=== PATIENT | female | born 1995 | race Caucasian/White ===

== ENCOUNTER 2017-01-18 11:25 | Emergency (ER) | payer OTHER ==
[~2017-01-18] VITALS: Ht 165.1 cm; Wt 59.9 kg
--- NOTE | 2017-01-18 12:13 | PHYS DOC ---
Past History Past Medical History: No Pertinent History Past Surgical History: No Surgical History Smoking: Non-smoker Alcohol Use: None Drug Use: None Adult General Chief Complaint Chief Complaint: [facility] Patient is a pleasant 21-year-old female who complains of suprapubic crampy abdominal pain that began 4 days ago with slight rectal bleeding that is nonpainful bright red blood per rectum when she wipes her rectum as well as its now being produced on the outside since his stool. The pain in her abdomen as crampy it does not radiate to her back or upper abdomen. She denies any prior history of the same. Pain is described as dull at this time mild without location in the right lower quadrant. Patient denies as she is on Mirena. Patient also says she denies any raw food consumption, sick contacts, travel outside the country, handling of poultry or reptiles, recent consumption of antibiotics, or dizziness. Patient says she has no rectal pain with his bowel movements, she has no rectal discharge other than loose diarrheal stool. Patient denies any fevers or chills with her symptoms. Patient denies any gum bleeding or heavy menstrual periods or easy bruising or bleeding. Review of Systems Review of Systems Constitutional: Denies fever or chills [] Eyes: Denies change in visual acuity, redness, or eye pain [] HENT: Denies nasal congestion or sore throat [] Respiratory: Denies cough or shortness of breath [] Cardiovascular: No additional information not addressed in [facility] [] GI: He does have crampy lower abdominal pain in the right lower suprapubic and left lower quadrants. With nausea no vomiting she has blood in her stools and diarrhea. : Denies dysuria or hematuria [] Musculoskeletal: Denies back pain or joint pain [] Integument: Denies rash or skin lesions [] Neurologic: Denies headache, focal weakness or sensory changes [] Endocrine: Denies polyuria or polydipsia [] Allergies Allergies Allergies Coded Allergies Type Severity Reaction Last Updated Verified No Known Drug Allergies 01/18/17 No Physical Exam Physical Exam Vital signs recorded on the chart within normal limits. Constitutional: Well developed, well nourished, no acute distress, non-toxic appearance. [] HENT: Normocephalic, atraumatic, bilateral external ears normal, oropharynx moist, no oral exudates, nose normal. [] Eyes: PERRLA, EOMI, conjunctiva normal, no discharge. [] Neck: Normal range of motion, no tenderness, supple, no stridor. [] Cardiovascular:Heart rate regular rhythm, no murmur [] Lungs & Thorax: Bilateral breath sounds clear to auscultation [] Abdomen: Bowel sounds normal, soft, she has slight tenderness to palpation in the left lower quadrant and suprapubic region. There is no masses organomegaly or rebound. Patient rectal exam demonstrated a small nonthrombosed hemorrhoid at the 6 clock position. There is no evidence of rectal fissure, no obvious blood in the stool. Skin: Warm, dry, no erythema, no rash. [] Back: No tenderness, no CVA tenderness. [] Extremities: No tenderness, no cyanosis, no clubbing, ROM intact, no edema. [] Neurologic: Alert and oriented X 3, normal motor function, normal sensory function, no focal deficits noted. [] Psychologic: Affect normal, judgement normal, mood normal. [] Current Patient Data Lab Results Laboratory Tests Test 01/18/17 12:00 01/18/17 12:20 01/18/17 12:45 01/18/17 13:01 Stool Occult Blood Positive (NEG) White Blood Count 6.6 x10^3/uL (4.0-11.0) Red Blood Count 4.90 x10^6/uL (3.50-5.40) Hemoglobin 15.1 g/dL (12.0-15.5) Hematocrit 42.9 % (36.0-47.0) Mean Corpuscular Volume 88 fL (79-100) Mean Corpuscular Hemoglobin 31 pg (25-35) Mean Corpuscular Hemoglobin Concent 35 g/dL (31-37) Red Cell Distribution Width 13.5 % (11.5-14.5) Platelet Count 202 x10^3/uL (140-400) Neutrophils (%) (Auto) 67 % (31-73) Lymphocytes (%) (Auto) 25 % (24-48) Monocytes (%) (Auto) 7 % (0-9) Eosinophils (%) (Auto) 1 % (0-3) Basophils (%) (Auto) 0 % (0-3) Neutrophils # (Auto) 4.4 x10^3uL (1.8-7.7) Lymphocytes # (Auto) 1.6 x10^3/uL (1.0-4.8) Monocytes # (Auto) 0.5 x10^3/uL (0.0-1.1) Eosinophils # (Auto) 0.1 x10^3/uL (0.0-0.7) Basophils # (Auto) 0.0 x10^3/uL (0.0-0.2) Sodium Level 142 mmol/L (136-145) Potassium Level 3.4 mmol/L (3.5-5.1) L Chloride Level 107 mmol/L (98-107) Carbon Dioxide Level 27 mmol/L (21-32) Anion Gap 8 (6-14) Blood Urea Nitrogen 11 mg/dL (7-20) Creatinine 0.8 mg/dL (0.6-1.0) Estimated GFR (Cockcroft-Gault) 92.4 BUN/Creatinine Ratio 14 (6-20) Glucose Level 56 mg/dL (70-99) L Calcium Level 9.3 mg/dL (8.5-10.1) Total Bilirubin 1.3 mg/dL (0.2-1.0) H Aspartate Amino Transferase (AST) 18 U/L (15-37) Alanine Aminotransferase (ALT) 18 U/L (14-59) Alkaline Phosphatase 80 U/L (46-116) Total Protein 8.3 g/dL (6.4-8.2) H Albumin 4.8 g/dL (3.4-5.0) Albumin/Globulin Ratio 1.4 (1.0-1.7) Lipase 121 U/L (73-393) Urine Collection Type Unknown Urine Color Yellow Urine Clarity Hazy Urine pH 7.5 Urine Specific [place] 1.020 Urine Protein 30 mg/dl (NEG-TRACE) Urine Glucose (UA) Neg mg/dL (NEG) Urine Ketones (Stick) Neg mg/dL (NEG) Urine Blood Neg (NEG) Urine Nitrite Neg (NEG) Urine Bilirubin Neg (NEG) Urine Urobilinogen Dipstick 0.2 mg/dL (0.2 mg/dL) Urine Leukocyte Esterase Neg (NEG) Urine RBC 1-2 /HPF (0-2) Urine WBC 5-10 /HPF (0-4) Urine Squamous Epithelial Cells Few /LPF Urine Bacteria Mod /HPF (0-FEW) Urine Mucus Slight /LPF POC Urine HCG, Qualitative hcg negative (Negative) EKG EKG [] Radiology/Procedures Radiology/Procedures [] [address] [address] IMAGING REPORT Signed PATIENT: KRISTIE SAMAYOA ACCOUNT: [id number] : 1995 LOCATION: ER AGE: 21 SEX: F EXAM STATUS: REG ER ORD. PHYSICIAN: KRISTI PATEL MD REASON: Lower abdominal pain, rectal bleeding PROCEDURE: CT ABD PELV W/ IV CONTRST ONLY CT abdomen pelvis with contrast. History: Lower abdominal pain, rectal bleeding CT scan of the abdomen and pelvis was done using 75 mL Omnipaque 300 contrast. Lung bases are clear. There is no effusion. Liver is normal in appearance. Spleen and adrenal glands are unremarkable. Pancreas is normal. There is no mass or hydronephrosis and the kidneys. A renal calculus is not identified. Bowel pattern is normal. There is no free air or bowel obstruction or ascites. Uterus and ovaries are normal. There is no free fluid in the pelvis. There is moderate stool in the rectum. There is not evidence of bowel wall thickening Impression: 1. Normal bowel pattern 2. Normal appendix. 3. Moderate stool in the rectum. 4. No abdominal or pelvic mass noted DICTATED AND SIGNED BY: KARI PAINTING MD DATE: 01/18/17 1084 CC: KRISTI PATEL MD; YVROSE GALINDO DO ~ Course & Med Decision Making Course & Med Decision Making Pertinent Labs and Imaging studies reviewed. (See chart for details) []Patient presents with crampy lower abdominal pain with bright red blood per rectum and diarrhea. Differential diagnosis includes but not limited to external hemorrhoids, internal hemorrhoids, rectal fissure, rectal trauma, diverticulitis, diverticulosis, irritable bowel syndrome, ulcerative colitis, Crohn's infectious diarrhea, bleeding dyscrasia, Her rectal exam was relatively normal with the exception of a small nontender nonthrombosed hemorrhoid. When the daughter except on the room the mother had told the nursing staff at about 1:20 PM that this patient has been drinking a lot of alcohol lately which may be concerning to her symptoms. On review of her lab work her LFTs are normal , her white blood cell count and CBC are normal, her urinalysis is clear with exception of slight bacteria and cells of 5-10. There is also slight epithelial cells as well. Patient is not patients comfortable resting with no abdominal pain at this point and her guaiac card was positive for blood. Patient's CT scan abdomen and pelvis is still pending at this time. Dragon Disclaimer Dragon Disclaimer This chart was dictated in whole or in part using Voice Recognition software in a busy, high-work load, and often noisy Emergency Department environment. It may contain unintended and wholly unrecognized errors or omissions. Departure Departure: Impression: Primary Impression: Abdominal pain Additional Impressions: Alcoholic gastritis Diarrhea Disposition: 01 HOME, SELF-CARE Condition: IMPROVED Referrals: YVROSE GALINDO DO (PCP) Patient Instructions: Abdominal Pain, Alcoholic Gastritis-Brief, Diarrhea Additional Instructions: My discharge plan Follow up: In addition patient is asked to followup with their primary doctor, within a week for followup examination and to address patient's ongoing medical conditions. Patient is advised that in the Emergency Department primary complaints are addressed and only in light of known signs and symptoms. Patient should return immediately to the emergency department if new signs and symptoms develop or patient's condition worsens in any way. At time of discharge patient was in stable condition and had verbalized understanding of the discharge instructions. Scripts Pantoprazole Sodium (PROTONIX) 40 Mg Tablet. 1 TAB PO DAILY, #30 TAB 0 Refills Prov: KRISTI PATEL MD 01/18/17 Ondansetron (ZOFRAN ODT) 8 Mg Tab.rapdis 4 MG PO TID for 10 Days Prov: KRISTI PATEL MD 01/18/17 Diphenoxylate Hcl/Atropine (LOMOTIL TABLET) 1 Each Tablet 1 TAB PO QID, #20 TAB Prov: KRISTI PATEL MD 01/18/17 Sucralfate (CARAFATE) 1 Gm Tablet 1 TAB PO QID, #30 TAB 1 Refill Prov: KRISTI PATEL MD 01/18/17 Problem Qualifiers KRISTI PATEL MD Jan 18, 2017 12:13
[2017-01-18] MEDS ORDERED: HYDROmorphone PF 1 MG/ML DISP.SYRIN IV/SQ PRN (12:15)
[2017-01-18] MEDS ORDERED: 0.9 % SODIUM CHLORIDE 10 ML DISP.SYRIN. IV PRN (12:15)
[2017-01-18] MEDS ORDERED: IOHEXOL 300 MG/ML 75 ML VIAL. IV ONE (12:15)
[2017-01-18] MEDS ORDERED: IV NORMAL SALINE 1,000ML 1,000 ML IV SCH (12:15)
[2017-01-18 12:20] LABS: FECAL OB PT POSITIVE (NEG)
[2017-01-18 12:38] LABS: BASO % 0 % (0-3); EOS # 0.1 x10^3/uL (0.0-0.7); EOS % 1 % (0-3); HEMATOCRIT 42.9 % (36.0-47.0); HEMOGLOBIN 15.1 g/dL (12.0-15.5); LYMPH # 1.6 x10^3/uL (1.0-4.8); LYMPH % 25 % (24-48); MEAN CORPUSCULAR HEMOGLOBIN 31 pg (25-35); MEAN CORPUSCULAR HGB CONC 35 g/dL (31-37); MEAN CORPUSCULAR VOLUME 88 fL (79-100); MONO # 0.5 x10^3/uL (0.0-1.1); MONO % 7 % (0-9); NEUT # 4.4 x10^3uL (1.8-7.7); NEUT % 67 % (31-73); PLATELET COUNT 202 x10^3/uL (140-400); RED CELL DISTRIBUTION WIDTH 13.5 % (11.5-14.5); WHITE BLOOD COUNT 6.6 x10^3/uL (4.0-11.0)
[2017-01-18 12:47] LABS: ALBUMIN 4.8 g/dL (3.4-5.0); ALBUMIN/GLOBULIN RATIO 1.4 (1.0-1.7); CALCIUM 9.3 mg/dL (8.5-10.1); CREATININE 0.8 mg/dL (0.6-1.0); GFR 92.4; POTASSIUM 3.4 mmol/L (3.5-5.1); TOTAL BILIRUBIN 1.3 mg/dL (0.2-1.0); TOTAL PROTEIN 8.3 g/dL (6.4-8.2)
[2017-01-18 13:13] LABS: BACTERIA,URINE MOD /HPF (0-FEW); BILIRUBIN,URINE NEG (NEG); CLARITY,URINE HAZY; COLOR,URINE YELLOW; GLUCOSE,URINE NEG (NEG); NITRITE,URINE NEG (NEG); SQUAMOUS EPITHELIAL CELL,UR FEW /LPF; UROBILINOGEN,URINE 0.2 mg/dL (0.2 mg/dL)
--- NOTE | 2017-01-18 13:42 | RAD ---
CT abdomen pelvis with contrast. History: Lower abdominal pain, rectal bleeding CT scan of the abdomen and pelvis was done using 75 mL Omnipaque 300 contrast. Lung bases are clear. There is no effusion. Liver is normal in appearance. Spleen and adrenal glands are unremarkable. Pancreas is normal. There is no mass or hydronephrosis and the kidneys. A renal calculus is not identified. Bowel pattern is normal. There is no free air or bowel obstruction or ascites. Uterus and ovaries are normal. There is no free fluid in the pelvis. There is moderate stool in the rectum. There is not evidence of bowel wall thickening Impression: 1. Normal bowel pattern 2. Normal appendix. 3. Moderate stool in the rectum. 4. No abdominal or pelvic mass noted
[2017-01-18 14:10] VITALS: BP 118/62
[2017-01-18] MEDS ORDERED: PANT40TA3 PO (14:12)
[2017-01-18] MEDS ORDERED: SUCR1TAB35 PO (14:12)
[2017-01-18] MEDS ORDERED: DIPH1TAB PO (14:12)
[2017-01-18] MEDS ORDERED: ONDA8TAB12 PO (14:12)
== END 2017-01-18 14:15 | disposition home or self-care (01) ==
LOC: ER 11:25
DX: K29.21 Alcoholic gastritis with bleeding (principal)
CPT/HCPCS: 36415; 74177; 80053; 81001; 81025; 82274; 83690; 85025; 87086; 96360; 96361; 99285; Q9967; J7030